=== PATIENT | male | born 1970 | race Caucasian/White ===

== ENCOUNTER 2018-03-20 02:56 | Emergency (ER) | payer MEDICAID ==
[~2018-03-20] VITALS: Ht 172.7 cm; Wt 105.0 kg
[2018-03-20] MEDS ORDERED: ASPIRIN 81MG TABLET PO ONE (04:30)
[2018-03-20 05:10] LABS: CHLORIDE 101 mEq/L (98-107)
[2018-03-20 05:19] LABS: BASOPHILS % 1.9 % (0.0-2.0); EOSINOPHILS % 4.6 % (0.0-5.0); HEMATOCRIT. 43.2 % (42.0-52.0); HEMOGLOBIN. 14.6 g/dL (14.0-18.0); LYMPHOCYTES % 24.1 % (20.0-50.0); MEAN CORPUSCULAR HEMOGLOBIN 32.1 pg (28.0-32.0); MEAN CORPUSCULAR VOLUME 94.8 fL (80.0-94.0); MEAN PLATELET VOLUME 8.1 fl (7.4-10.4); MONOCYTES % 14.4 % (2.0-8.0); PLATELET 231 x1000/uL (130-400); RED BLOOD CELL COUNT 4.56 mill/uL (4.7-6.1)
[2018-03-20 05:26] LABS: INR 1.1; PARTIAL THROMBOPLASTIN TIME 29.6 sec (23.4-31.0); PROTHROMBIN TIME 10.6 sec (9.1-11.1)
[2018-03-20 09:08] VITALS: BP 119/79
== END 2018-03-20 09:09 | disposition home or self-care (01) ==
LOC: ER 02:56
DX: M25.521 Pain in right elbow (principal); R07.89 Other chest pain
CPT/HCPCS: 36415; 71045; 73080; 84484; 93005; 99285